=== PATIENT | female | born 1960 | race Caucasian/White ===

== ENCOUNTER 2021-03-15 06:51 | Inpatient (IN) ==
--- NOTE | 2021-03-09 15:02 | EKG ---
[facility] Test Date: 2021-03-09 Pat Name: Maryellen Porter Department: [facility] Room: Gender: Female [employer]: : 1960 Requested By: Isabel Milton Order Number: [id number] Reading MD: Deep Salazar Measurements Intervals [place] Rate: 62 P: 62 OR: 148 QRS: -7 QRSD: 114 T: 41 QT: 440 QTc: 447 Interpretive Statements SINUS RHYTHM INCOMPLETE RIGHT BUNDLE BRANCH BLOCK Electronically Signed On 03-09-2021 15:02:25 PDT by Deep Salazar /store/[email or web address]/[id number]
[2021-03-09 22:16] LABS: Basophils # (Auto) 0.04 K/mcL (0.00-0.30); Basophils % (Auto) 0.7 % (0.0-2.0); Eosinophils # (Auto) 0.08 K/mcL (0.00-0.70); Eosinophils % (Auto) 1.4 % (0.0-7.0); Hematocrit 40.8 % (34.1-44.9); Hemoglobin 12.9 g/dL (11.2-15.7); Lymphocytes # (Auto) 1.14 K/mcL (1.50-4.80); Lymphocytes % (Auto) 19.5 % (15.5-49.0); Mean Cell Volume 91.7 fL (80.0-100.0); Mean Corpuscular HGB Conc 31.6 g/dL (31.0-36.0); Mean Platelet Volume 9.7 fL (7.4-10.4); Monocytes # (Auto) 0.44 K/mcL (0.10-0.90); Monocytes % (Auto) 7.5 % (1.0-12.0); Neutrophils % (Auto) 70.9 % (38.0-78.0); Platelet Count 275 K/mcL (140-440); RBC 4.45 M/mcL (3.59-5.38); Red Cell Distribution Width 14.6 % (11.5-14.5); WBC 5.9 K/mcL (4.5-11.0)
[2021-03-09 23:43] LABS: Blood Urea Nitrogen 18 mg/dL (6-20); Calcium 9.8 mg/dL (8.6-10.4); Carbon Dioxide 24 mmol/L (22-30); Chloride 102 mmol/L (96-108); Glomerular Filtration Rate 94; Glucose 87 mg/dL (70-105)
[~2021-03-15 06:51] MED LIST: SCOPOLAMINE 1 PATCH PATCH TOPICAL ONE; ceFAZolin 2 GM in DEXTROSE 5% IN WATER 50 ML IV SCH
[2021-03-15] MEDS ORDERED: ONDANSETRON 4 MG/2 ML VIAL ONE (07:50)
[2021-03-15] MEDS ORDERED: LIDOCAINE HCL/PF 100 MG/5 ML SYRINGE IV ONE (07:50)
[2021-03-15] MEDS ORDERED: fentaNYL 250 MCG/5 ML VIAL IV ONE (07:50)
[2021-03-15] MEDS ORDERED: ePHEDrine 50 MG/5 ML SYRINGE (ANEST) IV ONE (07:50)
[2021-03-15] MEDS ORDERED: PROPOFOL 200 MG/20 ML VIAL IV ONE (07:50)
[2021-03-15] MEDS ORDERED: DEXAMETHASONE 10 MG/ML VIAL ONE (07:50)
[2021-03-15] MEDS ORDERED: MAGNESIUM SULFATE 2 GM/50 ML BAG IV ONE (07:50)
[2021-03-15] MEDS ORDERED: SUCCINYLCHOLINE 20 MG/ML ML IV ONE (07:50)
[2021-03-15] MEDS ORDERED: KETAMINE 50 MG/ML Syringe (ANEST) IV ONE (07:50)
[2021-03-15] MEDS ORDERED: GELATIN SPONGE,ABSORBABLE 1 EACH SPONGE TOPICAL ONE (08:00)
[2021-03-15] MEDS ORDERED: THROMBIN (BOVINE) 5,000 UNIT VIAL TOPICAL ONE (10:06)
[2021-03-15] MEDS ORDERED: LACTATED RINGERS 250 ML IV PRN (11:06)
[2021-03-15] MEDS ORDERED: NALOXONE HCL 0.4 MG/ML VIAL IV PRN (11:06)
[2021-03-15] MEDS ORDERED: diphenhydrAMINE 50 MG/ML VIAL IV PRN (11:06)
[2021-03-15] MEDS ORDERED: IPRATROPIUM/ALBUTEROL 3 ML AMPUL.NEB NEB PRN (11:06)
[2021-03-15] MEDS ORDERED: fentaNYL 100 MCG/2 ML VIAL IV PRN (11:06)
[2021-03-15] MEDS ORDERED: MEPERIDINE 25 MG/ML VIAL IV PRN (11:06)
[2021-03-15] MEDS ORDERED: ACETAMINOPHEN 1,000 MG/100 ML BAG IV ONE (11:06)
[2021-03-15] MEDS ORDERED: PROMETHAZINE 25 MG/ML VIAL IV PRN ×2 (11:06→11:39)
[2021-03-15] MEDS ORDERED: ONDANSETRON 4 MG/2 ML VIAL IV PRN (11:06)
[2021-03-15] MEDS ORDERED: LACTATED RINGERS 1,000 ML IV SCH (11:15)
[2021-03-15] MEDS ORDERED: GUM MASTIC/STORAX/MSAL/ALCOHOL 1 DOSE DROPERETTE TOPICAL ONE (11:16)
--- NOTE | 2021-03-15 11:29 | XRay Report ---
INDICATION: L 4/5 XLIF TECHNIQUE: 0.6 minutes fluoroscopy and 9.43 mGy exposure used. Multiple spot films obtained COMPARISON: None. FINDINGS: Spot films demonstrate pedicle screws at L5 and S1 with bilateral rods IMPRESSION: 1. L5-S1 posterior spinal fusion 2. Intraoperative fluoroscopy and spot films utilized Interpreted and Authenticated by: Emerson Clark 03/15/21
[2021-03-15] MEDS ORDERED: BENZOCAINE/MENTHOL 1 LOZENGE PO PRN (11:33)
[2021-03-15] MEDS ORDERED: ONDANSETRON 4 MG ODT TABLET SL PRN (11:39)
[2021-03-15] MEDS ORDERED: BUPIVACAINE 0.25% 50 ML VIAL IJ ONE (11:52)
[2021-03-15] MEDS: 0.9 % SODIUM CHLORIDE 1,000 ML IV SCH ×2 (12:49→22:53)
[2021-03-15] MEDS: 0.9 % SODIUM CHLORIDE 10 ML SYRINGE IV SCH ×2 (12:51→21:50)
[2021-03-15] MEDS: HYDROmorphone 2 MG TABLET PO PRN ×3 (13:01→21:14)
[2021-03-15] MEDS: METHOCARBAMOL 750 MG TABLET PO PRN ×2 (14:01→21:15)
[2021-03-15] MEDS: ceFAZolin 1 GM VIAL IV SCH ×2 (16:20→22:54)
[2021-03-15] MEDS: morphine 2 MG/ML VIAL IV PRN (19:25)
[2021-03-15] MEDS: DOCUSATE SODIUM 100 MG CAPSULE PO SCH (21:15)
[2021-03-16] MEDS: morphine 2 MG/ML VIAL IV PRN ×2 (01:05→21:07)
[2021-03-16] MEDS: METHOCARBAMOL 750 MG TABLET PO PRN ×2 (02:50→18:12)
[2021-03-16] MEDS: HYDROmorphone 2 MG TABLET PO PRN ×5 (02:50→21:07)
[2021-03-16] MEDS: 0.9 % SODIUM CHLORIDE 10 ML SYRINGE IV SCH ×3 (04:50→21:08)
[2021-03-16 06:42] LABS: Hematocrit 30.6 % (34.1-44.9); Hemoglobin 9.4 g/dL (11.2-15.7)
--- NOTE | 2021-03-16 07:07 | EKG ---
[facility] Test Date: 2021-03-15 Pat Name: Maryellen Porter Department: [facility] Room: 109 Gender: Female [employer]: : 1960 Requested By: Sanchez Kendall Order Number: [id number] Reading MD: Deep Salazar Measurements Intervals [place] Rate: 74 P: 82 SC: 164 QRS: -15 QRSD: 118 T: 42 QT: 460 QTc: 511 Interpretive Statements SINUS RHYTHM Compared to prior features of INCOMPLETE RIGHT BUNDLE BRANCH BLOCK are not present Electronically Signed On 03-16-2021 7:07:19 PDT by Deep Salazar /store/[email or web address]/[id number]
[2021-03-16 07:19] LABS: Blood Urea Nitrogen 10 mg/dL (6-20); Calcium 7.8 mg/dL (8.6-10.4); Carbon Dioxide 23 mmol/L (22-30); Chloride 109 mmol/L (96-108); Glomerular Filtration Rate 99; Glucose 97 mg/dL (70-105)
--- NOTE | 2021-03-16 07:38 | Discharge Plan ---
Discharge Plan Patient/Caregiver Discharge Instructions Activity: ambulate only with your walker and as per physical therapy Diet: Regular Diet Instructions: Hardware Removal (DC) Prescriptions: New hydromorphone 2 mg Tablet 2 - 4 mg PO Q4HP PRN (Reason: Per Pain Protocol) Qty: 40 RF: 0 methocarbamol 750 mg Tablet 750 mg PO Q6HP PRN (Reason: Muscle Spasm) Qty: 30 RF: 0 No Action 5-hydroxytryptophan (5-HTP) [5-HTP] 100 mg capsule 100 mg PO BID RF: 0 multivitamin Tablet 1 tab PO QDAY RF: 0 cholecalciferol (vitamin D3) 50 mcg (2,000 unit) capsule 50 mcg PO QDAY RF: 0 cetirizine [Zyrtec] 10 mg tablet 10 mg PO QDAY PRN (Reason: Allergy Symptoms) RF: 0 diphenhydramine HCl [Simply Sleep] 25 mg tablet 25 mg PO QHS RF: 0 estradiol 0.5 mg tablet 0.5 mg PO Q3D RF: 0 diclofenac-misoprostol [Arthrotec 75] 75-200 mg-mcg Tablet,Ir,Delayed Rel,Biphasic 1 tab PO QAM RF: 0 DHEA 25 mg Tablet 25 mg PO 2-3XW RF: 0 naproxen sodium [Aleve] 220 mg Capsule 440 mg PO QHS RF: 0 Other Ambulatory Orders: Brace/Splint (ONCE) Location: None Selected Ordered By: Artur Cohen OT Discharge Order (Routine) Location: None Selected Ordered By: Artur Cohen Physical Therapy DC - General (Routine) Location: None Selected Ordered By: Artur Cohen Follow Up Plan Follow up with: Sanchez Kendall MD [Physician] - 03/30/21 11:00 am Patient Disposition: Home, Self-Care Prognosis: Good Rehab Potential: Good I certify that the patient requires SNF services: No Overall status at discharge: patient is progressing back to baseline Discharge Orders: Discharge Order (Routine); Ordered 03/16/21 Ordered By: Artur Cohen
--- NOTE | 2021-03-16 07:39 | Brief Operative Note ---
Brief Operative Note Date of procedure: 03/16/21 Pre-op diagnosis: stenosis L4/5 Post-op diagnosis: same Procedure: xlif with posterior L4/5 Grafts/Implants: Yes Anesthesia: GETA Findings: stenosis Complications: none Surgeon: Sanchez Kendall Estimated blood loss (cc): 200 Specimens Removed/Pathology: none sent Condition: stable Disposition: PACU
--- NOTE | 2021-03-16 07:40 | Orthopedic Progress Note ---
SUBJECTIVE Subjective Patient information: Note initiated : 03/16/21 at 7:40 am Service Date, if different from initiated Date: [] Patient: Maryellen Porter 61 y/o F admitted on for L4-5 XLIF with Posterior Instrumentation,. Chief Complaint: [no new issues] Constitutional Vitals: Vital Signs Temp Pulse Resp BP Pulse Ox 97.5 F 71 14 91/56 94 03/16/21 07:34 03/16/21 07:34 03/16/21 07:34 03/16/21 07:34 03/16/21 07:34 Period Temp Pulse Resp BP Sys/Pete Pulse Ox Last 24 Hr 96.5 F-98.7 F 54-89 12-18 91-118/50-69 94-100 Intake and Output 03/15/21 03/16/21 03/16/21 21:59 05:59 13:59 Intake Total 240 1450 Output Total 1220 935 10 Balance -980 515 -10 Intake & Output: Intake & Output 03/15/21 03/16/21 03/16/21 21:59 05:59 13:59 Intake Total 240 1450 Output Total 1220 935 10 Balance -980 515 -10 Intake: IV 1000 Sodium Chloride 0.9% 1,000 ml @ 1000 100 mls/hr IV .Q10H [facility] Rx#: [id number] Oral 240 450 Output: Drainage 120 35 Back 120 35 Drainage 10 Back 10 Void Amount 1100 900 Other: Meal Dinner Percent of Meal Consumed 75% Urine Appearance Clear Clear Urine Color Pale Pale OBJ DATA Labs CBC & Chem 7: 03/16/21 05:43 03/16/21 05:43 Labs: Abnormal Lab Results 03/16/21 03/16/21 05:43 05:43 Hgb 9.4 L Hct 30.6 L Chloride 109 H Anion Gap 7.0 L Calcium 7.8 L Meds: Medications Docusate Sodium (Docusate Sodium 100 Mg Capsule) 100 mg PO BID [facility] Last Admin: 03/15/21 21:15 Dose: 100 mg Documented by: Hydromorphone HCl (Hydromorphone 2 Mg Tablet) 2 - 4 mg PO Q4HP PRN; Protocol PRN Reason: Per Pain Protocol Last Admin: 03/16/21 06:54 Dose: 4 mg Documented by: Sodium Chloride (Sodium Chloride 0.9%) 1,000 mls @ 100 mls/hr IV .Q10H [facility] Last Admin: 03/15/21 22:53 Dose: 100 mls/hr Documented by: Methocarbamol (Methocarbamol 750 Mg Tablet) 750 mg PO Q6HP PRN PRN Reason: Muscle Spasm Last Admin: 03/16/21 02:50 Dose: 750 mg Documented by: Morphine Sulfate (Morphine 2 Mg/Ml Vial) 0 mg IV Q2HP PRN; Protocol PRN Reason: Per Pain Protocol Last Admin: 03/16/21 01:05 Dose: 4 mg Documented by: Ondansetron HCl (Ondansetron 4 Mg Odt Tablet) 4 mg SL Q4HP PRN; Protocol PRN Reason: Nausea And Vomiting Promethazine HCl (Promethazine 25 Mg/Ml Vial) 12.5 mg IV Q6HP PRN; Protocol PRN Reason: Nausea And Vomiting Sodium Chloride (0.9 % Sodium Chloride 10 Ml Syringe) 10 ml IV Q8 [facility] Last Admin: 03/16/21 04:50 Dose: Not Given Documented by: Throat Lozenges (Benzocaine/Menthol 1 Lozenge) 1 lozenge PO PRN PRN PRN Reason: Sore Throat Last Admin: 03/16/21 01:08 Dose: 1 lozenge Documented by: A/P Narrative A/P Narrative: mobilize with PT dc plannnig Time Spent With Patient Time: Total time spent is greater than 50% in coordination of care (as documented) at patient's floor/unit and/or counseling patient:
[2021-03-16] MEDS ORDERED: TRANEXAMIC ACID 1,000 MG/10 ML VIAL IV ONE (07:43)
--- NOTE | 2021-03-16 08:46 | Operative Note ---
DATE OF OPERATION: 03/15/2021 PREOPERATIVE DIAGNOSIS: Transitional breakdown L4-L5, which is above an L5-S1 fusion. The patient has stenosis and instability causing radiculopathy at the L4-L5 level. POSTOPERATIVE DIAGNOSIS: Transitional breakdown L4-L5, which is above a L5-S1 fusion. The patient has stenosis and instability causing radiculopathy at the L4-L5 level. PROCEDURES: 1. Anterior interbody fusion via lateral retroperitoneal approach L4-L5 with application of prosthetic device interbody space. 2. Posterior removal of nonsegmental instrumentation, L5-S1 lumbar decompression L4-L5, segmental instrumentation L4 through S1 posterior/posterolateral fusion, L4-L5. SURGEON: Sanchez Kendall M.D. MARINA MANAGER: Rebecca Mcelroy PA-C. This providers expertise and technical skill were required throughout the case. The PA assisted with preoperative coordination, intraoperative retraction, wound closure, and dressing and splint application, as well as postoperative documentation and care coordination. INDICATIONS: This is a lady who has had a previous fusion at the L5-S1 level. She has now developed stenosis and has had debilitating radiculopathy. We have elected to proceed with a decompression and fusion L4-L5. DESCRIPTION OF PROCEDURE: Informed consent was obtained. The patient was taken to the operating room and provided with appropriate anesthetic and prophylactic antibiotics. She was carefully positioned. The left flank was prepped sterilely. A standard retroperitoneal approach to the L4-L5 interspace was performed. We advanced through the psoas with an EMG monitor trocar. We sequentially dilated and docked a self-retaining retractor at the L4-L5 interspace. The annulus was incised. I passed a Rushing across the disc space, freeing the contralateral annulus. The disc was then curetted and distracted with a variety of trials. An 8 x 22 x 50 mm cage from [employer] was filled with morselized bone graft and impacted into the site prepared for it. Patient was then turned in the prone position. A midline incision was made. We dissected down to expose spinous process and lamina of L4. There were some remnants of the lamina of L5. We then turned sideways and debrided the hardware. The hardware was exposed and debrided of soft tissue. I then removed the locking screw. The camilo was removed. I removed the L5 pedicle screw. I inspected the fusion and then fusion did indeed appear to be a solid fusion. The fusion appeared to be solid. I then a decompression, removing the inferior one-half spinous process and lamina of L4. The hypertrophied medial border of the facet joint was debrided and the lateral recess and opening the foramen seemed very adequately patent. She did not have central stenosis. I then placed a pedicle screw at L4. This was done by passing gearshift awl cannulating the pedicle. The pedicle was then probed with a ball tip whip and I then tapped, reprobed and placed appropriate length pedicle screw at L4. A new pedicle screw was placed at L5, both on the right and the left. The wounds had been irrigated thoroughly. I then performed the posterior and posterolateral fusion by packing morselized graft into it against the decorticated posterolateral aspect was applied to allow for fusion. The procedure was completed by compressing across the interbody graft. I tightened and torqued the camilo into the top-loading pedicle screws. I closed over a deep drain. The wounds were closed over a deep drain with a 0 Vicryl in interrupted fashion, 2-0 Vicryl inverted deep dermal and a running subcuticular. Procedure was tolerated well. COMPLICATIONS: None. ESTIMATED BLOOD LOSS: 200 mL. GDD:toya Job ID: [id number] Doc ID: [id number] Sanchez Kendall MD
[2021-03-16] MEDS: DOCUSATE SODIUM 100 MG CAPSULE PO SCH ×2 (08:51→21:07)
[2021-03-16] MEDS: 0.9 % SODIUM CHLORIDE 1,000 ML IV SCH ×2 (10:17→11:30)
[2021-03-17] MEDS: morphine 2 MG/ML VIAL IV PRN (00:22)
[2021-03-17] MEDS: HYDROmorphone 2 MG TABLET PO PRN ×2 (06:50→10:24)
[2021-03-17] MEDS: METHOCARBAMOL 750 MG TABLET PO PRN (06:50)
[2021-03-17 08:32] LABS: Hematocrit 29.7 % (34.1-44.9); Hemoglobin 9.5 g/dL (11.2-15.7)
[2021-03-17] MEDS: DOCUSATE SODIUM 100 MG CAPSULE PO SCH (10:24)
== END 2021-03-17 11:40 | disposition home or self-care (01) | DRG 455 ==
LOC: SUR 06:51 → MEDSUR 12:30
PROVIDERS: ADMIT Orthopaedic Surgery Orthopaedic Surgery of the Spine; ATTEND Orthopaedic Surgery Orthopaedic Surgery of the Spine